=== PATIENT | male | born 1960 | race African-American/Black ===

== ENCOUNTER 2023-11-10 09:39 | Outpatient (CLI) | payer MEDICARE, OTHER ==
[2023-11-10 12:27] LABS: BASOPHILS % (AUTO) 0.3 %; EOSINOPHILS # (AUTO) 0.1 10^3/uL (0.0-0.7); HCT - HEMATOCRIT 39.6 % (42.0-52.0); HGB - HEMOGLOBIN 13.1 g/dL (14.0-18.0); LYMPHOCYTES # (AUTO) 1.4 10^3/uL (1.5-3.5); LYMPHOCYTES % (AUTO) 23.4 %; MEAN CORPUSCULAR HEMOGLOBIN 29.5 pg (27.0-31.0); MEAN CORPUSCULAR HGB CONC 33.1 g/dL (32.0-36.0); MEAN CORPUSCULAR VOLUME 89.2 fL (80.0-94.0); MEAN PLATELET VOLUME 10.4 fL (7.4-11.4); MONOCYTES # (AUTO) 0.4 10^3/uL (0.0-1.0); MONOCYTES % (AUTO) 6.8 %; NEUTROPHILS % (AUTO) 67.2 %; PLT - PLATELET COUNT 208 10^3/uL (130-450); RED BLOOD COUNT 4.44 10^6/uL (4.70-6.10)
[2023-11-10 12:44] LABS: ALBUMIN 4.3 g/dL (3.2-5.5); ALBUMIN/GLOBULIN RATIO 1.5 (1.0-2.2); ALKALINE PHOSPHATASE 49 IU/L (42-121); ALT ALANINE AMINOTRANSFERASE 52 IU/L (10-60); AST ASPARTATE AMINOTRANSFERASE 43 IU/L (10-42); BILIRUBIN,TOTAL 0.6 mg/dL (0.2-1.0); BUN - BLOOD UREA NITROGEN 14 mg/dL (6-20); CALCIUM 9.7 mg/dL (8.5-10.3); CARBON DIOXIDE - CO2 31 mmol/L (21-32); CHLORIDE 102 mmol/L (101-111); CHOL/HDL RATIO 5.9 (<5.0); CHOLESTEROL 200 mg/dL; CREATININE 0.8 mg/dL (0.6-1.3); GFR - MDRD 118 (>89); GLUCOSE 125 mg/dL (74-104); HDL CHOLESTEROL 34 mg/dL; LDL CHOLESTEROL,CALCULATED 112 mg/dL; LDL/HDL RATIO 3.3 (<3.6); POTASSIUM 4.2 mmol/L (3.5-4.5); SODIUM 139 mmol/L (135-145); TOTAL PROTEIN 7.1 g/dL (6.4-8.9); TRIGLYCERIDES 270 mg/dL (48-352); VLDL CHOLESTEROL 54 mg/dL
[2023-11-10 12:54] LABS: THYROID STIMULATING HORMONE 0.75 uIU/mL (0.34-5.60)
[2023-11-10 13:29] LABS: ESTIMATED AVERAGE GLUCOSE 120 mg/dL (70-100); HEMOGLOBIN A1c% 5.8 % (4.27-6.07)
== END 2023-11-10 09:40 | disposition home or self-care (01) ==
LOC: LAB.N 09:39
DX: R73.03 Prediabetes (principal); Z12.5 Encounter for screening for malignant neoplasm of prostate; E78.5 Hyperlipidemia, unspecified
CPT/HCPCS: 36415; 80053; 80061; 83036; 84443; 85025; G0103; 83721; 84153